=== PATIENT | male | born 1960 | race Caucasian/White ===

== ENCOUNTER 2016-06-12 23:17 | Emergency (ER) | payer OTHER ==
[~2016-06-12] VITALS: Ht 188 cm; Wt 86.2 kg
[~2016-06-12 23:17] MED LIST: NAPROXEN500 MG PO; PERCOCET 325 MG1 TA2 PO
--- NOTE | 2016-06-13 00:47 | ED GI/GU/ABDOMINAL COMPLAINT ---
History of Present Illness General Chief Complaint: Male Genitourinary Problems Stated Complaint: HEMATURIA Source: patient, family, old records Exam Limitations: no limitations Vital Signs & Intake/Output Vital Signs & Intake/Output Vital Signs Date Time Temp Pulse Resp B/P B/P Pulse O2 O2 Flow FiO2 Mean Ox Delivery Rate 06/13 0103 98.0 89 18 142/89 05 0053 98.0 89 18 142/89 93 Room Air 06/13 0044 93 06/12 2320 99.5 97 18 164/93 98 Room Air ED Intake and Output 06/13 0000 06/12 1200 Intake Total Output Total Balance Patient 190 lb Weight Weight Reported by Patient Measurement Method Allergies Coded Allergies: NO KNOWN ALLERGIES (01/07/14) Reconcile Medications Phenazopyridine HCl (Pyridium) 200 MG TABLET 1 TAB PO TID dysuria Sulfamethoxazole/Trimethoprim (Bactrim Ds Tablet) 800 MG-160 MG TABLET 1 TAB PO BID prostatitis Tamsulosin HCl (Flomax) 0.4 MG CAP.ER.24H 1 CAP PO DAILY prostatitis Triage Note: PT TO TRIAGE WITH C/O BURNING WITH URINATION x4DAYS. ALSO BLOOD IN URINE AND CHILLS TODAY. TEMP 99.5 IN TRIAGE. NO OTHER COMPLAINTS. Triage Nurses Notes Reviewed? yes Onset: 4 days Duration: day(s):, constant, continues in ED, getting worse Timing: recent history Quality/Severity: aching, burning, moderate Location: urethral Radiation: no radiation Activities at Onset: none Prior Abdominal Problems: none Past Sexual History: Unobtainable at this time Modifying Factors: Worsens With: urinating. Associated Symptoms: dysuria, fever/chills, urinary frequency HPI: 4 days prior to admission patient complains of low-grade fever chills dysuria frequency with decreasing urinary stream. Prior to admission he noted significant discoloration of his urine. He denies nausea vomiting diarrhea abdominal pain chest pain shortness of breath headache rash bleeding. Past History Travel History Traveled to [place] past 21 day No Medical History Any Pertinent Medical History? none Influenza Vaccine: 12/17/13 Surgical History Surgical History: non-contributory Psychosocial History What is your primary language Lib[place] Tobacco Use: Never used Family History Hx Contributory? No Review of Systems Review of Systems Constitutional: Reports: see HPI, chills, fever. EENTM: Reports: no symptoms. Respiratory: Reports: no symptoms. Cardiovascular: Reports: no symptoms. GI: Reports: no symptoms. Genitourinary: Reports: see HPI, dysuria, frequency, pain, urgency. Musculoskeletal: Reports: no symptoms. Skin: Reports: no symptoms. Neurological/Psychological: Reports: no symptoms. Hematologic/Endocrine: Reports: no symptoms. Immunologic/Allergic: Reports: no symptoms. All Other Systems: Reviewed and Negative Physical Exam Physical Exam General Appearance: well developed/nourished, alert, awake, anxious, mild distress Head: atraumatic, normal appearance Eyes: Bilateral: normal appearance, PERRL, EOMI, normal inspection. Ears, Nose, Throat, Mouth: hearing grossly normal, moist mucous membrane Neck: normal inspection, supple, full range of motion, normal alignment Respiratory: normal breath sounds, chest non-tender, no respiratory distress, quiet respiration, lungs clear Cardiovascular: regular rate/rhythm, normal peripheral pulses, norml femoral pulses equa Peripheral Pulses: 4+ carotid (R), 4+ carotid (L) Gastrointestinal: normal bowel sounds, soft, non-tender, no organomegaly Male Genitals: normal genitalia Back: normal inspection, normal range of motion Extremities: normal range of motion, no ligament instability Neurologic/Psych: no motor/sensory deficits, awake, alert, oriented x 3, normal gait, normal mood/affect Skin: intact, normal color, warm/dry Core Measures ACS in differential dx? No Severe Sepsis Present: No Septic Shock Present: No Progress Differential Diagnosis: urethritis, UTI/pyelo Plan of Care: Orders Procedure Date/time Status Add-on Test (ER Only) 06/13 45 Active CULTURE,URINE 06/12 2330 Active URINALYSIS 06/12 2324 Complete Laboratory Tests 06/12/161: Urinalysis LIGHT H, Urine Color BROWN H, Urine Clarity TURBD H, Urine pH 6.0, Ur Specific [place] >= 1.030, Urine Protein 100 H, Urine Ketones NEG, Urine Nitrite NEG, Urine Bilirubin NEG, Urine Urobilinogen 0.2, Ur Leukocyte Esterase TRACE H, Ur Microscopic SEDIMENT EXAMINED, Urine RBC 25-50 H, Urine WBC 50-75 H, Urine Bacteria FEW H, Urine Hemoglobin LARGE H, Urine Glucose NEG Microbiology 06/12 233 URINE ROUT: Urine Culture - RECD Initial ED EKG: none Departure Departure Time of Disposition: 46 Disposition: HOME OR SELF CARE Condition: Stable Clinical Impression Primary Impression: Prostatitis syndrome Referrals: BALTAZAR PETERSON MD Call for urology follow up. ÁLVARO MCGARRY MD (PCP/Family) Departure Forms: Customer Survey General Discharge Information Prescriptions: Current Visit Scripts Sulfamethoxazole/Trimethoprim (Bactrim Ds Tablet) 1 TAB PO BID #42 TAB Tamsulosin HCl (Flomax) 1 CAP PO DAILY #30 CAP Phenazopyridine HCl (Pyridium) 1 TAB PO TID #9 TAB
[2016-06-13] MEDS ORDERED: FLOMAX0.4 M1 PO (00:49)
[2016-06-13] MEDS ORDERED: PYRIDIUM200 M1 PO (00:49)
[2016-06-13] MEDS ORDERED: BACTRIM DS TAB1 EACH PO (00:49)
[2016-06-13 01:03] VITALS: BP 142/89
== END 2016-06-13 01:05 ==
LOC: ERH 23:17
DX: N41.9 Inflammatory disease of prostate, unspecified (principal)
CPT/HCPCS: 81001; 87086